=== PATIENT | male | born 1940 | race Caucasian/White ===

== ENCOUNTER 2019-05-15 21:54 | Emergency (ER) | payer MEDICARE ==
--- NOTE | 2019-05-15 22:06 | ED ---
Head Injury - HPI Summary HPI Summary: 79 year old M brought in by EMS to [facility] with a chief complaint of hematoma on left church after an unwitnessed fall down approximately 6 steps at home, hitting his head on a metal pole and landing on his left side at 21:30 today per EMS. Per EMS, patient's found patient lying on the floor on his left side. EMS reports small abrasion on his right flank. Patient denies neck pain and abdominal pain. The patient rates the pain 0/10 in severity. Symptoms aggravated by nothing. Symptoms alleviated by nothing. EMS states that patient has hx dementia. EMS states that patient has hx fall which resulted in compound fracture on his left wrist. Medications reviewed. Allergies noted. - History Of Current Complaint Stated Complaint: FALL PER EMS Hx Obtained From: EMS Mechanism Of Injury: Other - unwitnessed fall down approximately 6 steps at home , hitting his head on a metal pole and landing on his left side Onset/Duration: Started Hours Ago - 1, Still Present Severity Currently: None Pain Intensity: 0 Pain Scale Used: 0-10 Numeric Aggravating Factor(s): Other: - Nothing Alleviating Factor(s): Other: - Nothing Associated Signs And Symptoms: Negative - neck pain and abdominal pain, Other: - small abrasion on his right flank - Allergies/Home Medications Allergies/Adverse Reactions: Allergies Allergy/AdvReac Type Severity Reaction Status Date / Time No Known Allergies Allergy Verified 05/15/19 22:04 PMH/Surg Hx/FS Hx/Imm Hx Endocrine/Hematology History: Reports: Hx Diabetes - MEDICATED Cardiovascular History: Reports: Hx Hypertension - MEDICATED Denies: Hx Pacemaker/ICD History: Denies: Hx Renal Disease Sensory History: Reports: Hx Hearing Aid Psychiatric History: Denies: Hx Panic Disorder - Surgical History Surgery Procedure, Year, and Place: PARATHYROID 2002. LEFT KNEE CAP REPAIRED NOT METAL. BILATERAL CATARACTS 2013 - Family History Known Family History: Positive: Diabetes, Other - hemophilia in father - Social History Alcohol Use: Occasionally Hx Substance Use: No Substance Use Type: Reports: None Smoking Status (MU): Unknown if Ever Smoked Review of Systems Negative: Abdominal Pain Musculoskeletal: Negative - neck pain Positive: Other - hematoma on left church, small abrasion on his right flank All Other Systems Reviewed And Are Negative: Yes Physical Exam - Summary Physical Exam Summary: Constitutional: Well-developed, Well-nourished, Alert. (-) Distressed, No tenderness anywhere Skin: Warm, Dry, Small abrasion to left flank HENT: Hematoma to left church Eyes: Conjunctiva normal Neck: Musculoskeletal ROM normal neck. (-) JVD, (-) Stridor, (-) Tracheal deviation Cardio: Rhythm regular, rate normal, Heart sounds normal; Intact distal pulses; The pedal pulses are 2+ and symmetric. Radial pulses are 2+ and symmetric. (-) Murmur Pulmonary/Chest wall: Effort normal. (-) Respiratory distress, (-) Wheezes, (-) Rales Abd: Soft, (-) tenderness, (-) Distension, (-) Guarding, (-) Rebound Musculoskeletal: (-) Edema Lymph: (-) Cervical adenopathy Neuro: Alert, Oriented x3 Psych: Mood and affect Normal GCS: 15 Triage Information Reviewed: Yes Vital Signs Reviewed: Yes Diagnostics - Laboratory Lab Statement: Any lab studies that have been ordered have been reviewed, and results considered in the medical decision making process. - CT CT Cervical Spine CT Interpretation Completed By: Radiologist Summary of CT Findings: 1. No cervical spine traumatic abnormalities. 2. Moderate multilevel cervical spondylopathy. ED physician has reviewed this report. CT Brain CT Interpretation Completed By: Radiologist Summary of CT Findings: 1. Left frontal superficial contusion/hematoma. No traumatic intracranial abnormalities. 2. Age-related atrophy and mild chronic small vessel ischemic disease. ED physician has reviewed this report. Head Injury Course/Dx Course Of Treatment: Patient is here after a mechanical fall. Patient has a hematoma on his head. Patient is not on blood thinners. Patient had negative CT head and cervical spine. Patient was discharged to his family who will watch him at home for evidence of delayed intracranial hemorrhage. - Diagnoses Provider Diagnoses: Fall (on) (from) unspecified stairs and steps, initial encounter, Traumatic hematoma of head Discharge ED - Sign-Out/Discharge Documenting (check all that apply): Patient Departure - Discharge Patient Received Moderate/Deep Sedation with Procedure: No - Discharge Plan Condition: Stable Disposition: HOME Patient Education Materials: Fall Prevention for Older Adults (ED), Hematoma ( ED) Referrals: Rosio Vargas MD [Primary Care Provider] - 1 Day Additional Instructions: Please follow up with your primary care physician. Please make all follow-ups in 1-3 days unless I advise you otherwise. PLEASE RETURN TO EMERGENCY DEPARTMENT FOR ANY NEW OR WORSENING SYMPTOMS such as worsening mental status, repeated vomiting, and/or new slurred speech. - Billing Disposition and Condition Condition: STABLE Disposition: Home - Attestation Statements Document Initiated by Sudha: Yes Documenting Scribe: Roxann Downey Provider For Whom Sudha is Documenting (Include Credential): Houston Lauren MD Scribe Attestation: I, Roxann Downey, scribed for Houston Lauren MD on 05/16/19 at 0345. Scribe Documentation Reviewed: Yes Provider Attestation: The documentation as recorded by the Roxann rodriguez accurately reflects the service I personally performed and the decisions made by me, Houston Lauren MD Status of Scribe Document: Viewed
--- OUTSIDE RECORDS SUMMARY | 2019-05-15 22:41 | XMS REPORT | Summary of Care ---
:1940 Author Organization [facility] Address [address] [facility] [place] [address] Care Team Providers Name Role Phone Rosio Vargas MD Primary Care Provider Reason for Visit Reason Comments Surgical Followup 02/07/19 ORIF left distal radius fracture and left scaphoid fracture. Patient is doing well, no complaints. Encounter Details Date Type Department Care Team Description 04/09/2019 Office Visit [facility] - Darío Gunderson Open fracture of left Marco Mchugh MD wrist with routine [address] [facility] healing, subsequent [address] [place] [address] encounter ([place] [address] Dx) [phone] Allergies No Known Allergiesdocumented as of this encounter (statuses as of 04/09/2019) Medications Medication Sig Dispensed Refills Start Date End Date Status ENALAPRIL MALEATE PO Take by 0 Active mouth DAILY. METFORMIN HCL PO Take by 0 Active mouth DAILY. ATORVASTATIN CALCIUM PO Take by 0 Active mouth DAILY. MEMANTINE HCL PO Take by 0 Active mouth DAILY. atenolol (TENORMIN) 25 MG Take 25 mg by 0 Active Oral Tab mouth DAILY. hydrochlorothiazide (HCTZ, Take 25 mg by 0 Active ORETIC) 25 MG Oral Tab mouth DAILY. donepezil (ARICEPT) 10 MG Take 10 mg by 0 Active Oral Tab mouth EVERY BEDTIME. methimazole (TAPAZOLE) 5 MG Take 5 mg by 0 Active Oral Tab mouth THREE TIMES DAILY. documented as of this encounter (statuses as of 04/09/2019) Active Problems Problem Noted Date Fracture of left wrist with routine healing 02/26/2019 Open fracture of left distal radius and ulna 02/07/2019 Acute alcohol intoxication 02/07/2019 Unwitnessed fall 02/07/2019 Pseudophakia of both eyes 11/15/2017 S/P YAG capsulotomy, right 11/15/2017 Hypertension Diabetes mellitus Elevated cholesterol Alzheimer disease Dementia Hyperthyroidism documented as of this encounter (statuses as of 04/09/2019) Immunizations Name Administration Dates Next Due TDAP Vaccine 02/07/2019 documented as of this encounter Social History Tobacco Use Types Packs/Day Years Used Date Former Smoker Smokeless Tobacco: Never Used Alcohol Use Drinks/Week oz/Week Comments No Sex Assigned at Date Recorded Not on file Job Start Date Occupation Industry Not on file Not on file Not on file Travel History Travel Start Travel End No recent travel history available. documented as of this encounter Last Filed Vital Signs Vital Sign Reading Time Taken Comments Blood Pressure 114/66 04/09/2019 1:30 PM EDT Pulse - - Temperature - - Respiratory Rate - - Oxygen Saturation - - Inhaled Oxygen Concentration - - Weight 77.1 kg (170 lb) 04/09/2019 1:30 PM EDT Height 175.3 cm (5' 9") 04/09/2019 1:30 PM EDT Body Mass Index 25.1 04/09/2019 1:30 PM EDT documented in this encounter Progress Notes Darío Gunderson MD - 04/09/2019 1:00 PM EDT PATIENT: Jero Jackson : 1940 DATE OF SERVICE: 04/09/2019 Chief Complaint Patient presents with Surgical Followup 02/07/19 ORIF left distal radius fracture and left scaphoid fracture. Patient is doing well, no complaints. 2 months post-op. No complaints; no pain. Neurovascular exam intact. Incisions and open fracture wound well-healed. No sign of infection. Fingers, wrist, elbow and pronation full with 70-degrees Supination. I reviewed xrays Left wrist : reduction OK (about 9 degrees extra volar tilt); HARDWARE OK, Healing progressing well. Doing well. Ad bert activity-may discontinue brace. Follow-up visit 2 months with with same xray views as today. HEP for supination and weekend caregiver/pinch strengthening Author: Darío Gunderson MD 04/09/2019 15:23 documented in this encounter Plan of Treatment Date Type Specialty Care Team Description 07/02/2019 Office Visit Orthopedics Darío Gunderson MD [address] [place] [address] [phone] Health Maintenance Due Date Last Done Comments MEDICARE ANNUAL WELLNESS VISIT 1940 DEPRESSION SCREENING 1954 HIV SCREENING 1957 FOOT EXAM 1960 ZOSTER IMMUNIZATION SERIES (1 1992 of 2) FALL RISK ASSESSMENT 2007 PNEUMOCOCCAL 65+YRS (1 of 2 - 2007 PCV13) Diabetic Eye Exam 11/23/2018 11/23/2017, 11/15/2017 INFLUENZA VACCINE (#1) 2019 HEMOGLOBIN A1C 05/10/2019 02/07/2019, 02/07/2019 HPV IMMUNIZATION SERIES Aged Out No longer eligible based on patient's age to complete this topic MENINGOCOCCAL VACCINE IMM Aged Out No longer eligible based on patient's age to complete this topic documented as of this encounter Implants Implanted Type Area Nurse Transition Device Shelf Model / Serial Identifier Expiration / Lot Date Iol, [id number] 18.0 Diopter - [id number] Right: [employer]ORZ [id number] / Implanted: Qty: 1 on 08/07/2013 at [facility] Eye [id number] / Iol, [id number] 18.0 Diopter - [id number] Left: Eye STORZ [id number] / Implanted: Qty: 1 on 09/25/2013 at [facility] / [id number] Screw 201.772 Cortex T8 2.4x22 - [id number] Left: [employer] 201.772 / Implanted: Qty: 1 on 02/07/2019 by Darío Gunderson MD at [facility] ([place]) / Screw 201.762 Cortex T8 2.4x12 - [id number] Left: [employer] 201.762 / Implanted: Qty: 1 on 02/07/2019 by Darío Gunderson MD at [facility] Wrist ([facility]) / Screw 201.764 Cortex T8 2.4x14 - [id number] Left: [employer]. 201.764 / Implanted: Qty: 1 on 02/07/2019 by Darío Gunderson MD at [facility] ([facility]) / Compr Ft Scrw,2.5 Micro,26mm - [id number] Left: ARTHREX [id number] / Implanted: Qty: 1 on 02/07/2019 by Darío Gunderson MD at [facility] / Va Distal Radius Pl;Ate 6/4 L - [id number] Left: [employer]. 111.641 / Implanted: Qty: 1 on 02/07/2019 by Darío Gunderson MD at [facility] ([facility]) / [id number] 2.4 Va Dorsal Rad Column 5h Plate - [id number] Left: [employer]. 115.530 / Implanted: Qty: 1 on 02/07/2019 by Darío Gunderson MD at [facility] ([facility]) / [id number] 2.4 Va Locking Screw Star 18mm - [id number] Left: [employer]. .118 / Implanted: Qty: 1 on 02/07/2019 by Darío Gunderson MD at [facility] ([facility]) / 2.4 Va Locking Screw Star 22mm - [id number] Left: [employer]. 210.122 / Implanted: Qty: 2 on 02/07/2019 by Darío Gunderson MD at [facility] ([facility]) / 2.4 Va Locking Screw Star 20mm - [id number] Left: [employer]. 210.120 / Implanted: Qty: 2 on 02/07/2019 by Darío Gunderson MD at [facility] ([facility]) / 2.4 Va Locking Screw Star 14mm - [id number] Left: [employer]. 210.114 / Implanted: Qty: 2 on 02/07/2019 by Darío Gunderson MD at [facility] Wrist ([place]) / Screw 201.768 Cortex T8 2.4x18 - [id number] Left: [employer] 201.768 / Implanted: Qty: 1 on 02/07/2019 by Darío Gunderson MD at [facility] ([facility]) / documented as of this encounter Results Not on filedocumented in this encounter Visit Diagnoses Diagnosis Open fracture of left wrist with routine healing, subsequent encounter - Primary documented in this encounter Insurance Payer Benefit Plan / Subscriber ID Effective Dates Phone Address Type Group MEDICARE MEDICARE PART A xxxxxxxxxxx 2007-Present Medicare & B [facility] xxxxxxxxxxx 2017-Present [facility] OPTIONS Guarantor Name Account Type Relation to Date of Phone Billing Patient Address Jero Jackson Personal/Family 1940 [address] (Home) [place], [employer] (Work) documented as of this encounter Advance Directives Code Status Date Activated Date Inactivated Comments Full Code 02/07/2019 4:04 PM 02/08/2019 7:14 PM Does the patient have No decision making capacity? Order was discussed with: Unable to determine at this time I discussed all options and Other (see comments) code status unknown at this patient/surrogate requested time and agreed to:
[2019-05-15] MEDS ORDERED: Acetaminophen TAB* 325 MG PO ONE (23:23)
[2019-05-15 23:50] VITALS: BP 167/74
== END 2019-05-15 23:50 | disposition home or self-care (01) ==
LOC: ED 21:54
DX: S00.83XA Contusion of other part of head, initial encounter (principal); W10.9XXA Fall (on) (from) unspecified stairs and steps, initial encounter; Y92.009 Unspecified place in unspecified non-institutional (private) residence as the place of occurrence of the external cause; E11.9 Type 2 diabetes mellitus without complications; I10 Essential (primary) hypertension; M48.8X2 Other specified spondylopathies, cervical region; Z79.899 Other long term (current) drug therapy
CPT/HCPCS: 70450; 72125; 99283; A9270-GY